=== PATIENT | male | born 1960 | race American Indian/Alaskan Native ===

== ENCOUNTER 2020-06-20 17:55 | Emergency (ER) | payer MEDICAID ==
--- NOTE | 2020-06-20 18:44 | Event Note ---
ED Screening Note Date of service: 06/20/20 Time: 18:43 ED Screening Note: Patient complains of nausea vomiting and abdominal pain x2 days Vitals are normal This initial assessment/diagnostic orders/clinical plan/treatment(s) is/are subject to change based on patients health status, clinical progression and re- assessment by fellow clinical providers in the ED. Further treatment and workup at subsequent clinical providers discretion. Patient/guardian urged not to elope from the ED as their condition may be serious if not clinically assessed and managed. Initial orders include: Labs
[2020-06-20 19:41] LABS: Basophils % (Auto) 0.3 % (0.0-1.8); Eosinophils % (Auto) 0.2 % (0.0-4.3); Hemoglobin 13.4 gm/dl (11.8-15.2); Lymphocytes # (Auto) 0.7 K/mm3 (1.2-5.4); Lymphocytes % (Auto) 11.5 % (13.4-35.0); Mean Corpuscular HGB Conc 34 % (32-34); Mean Corpuscular Volume 106 fl (84-94); Monocytes # (Auto) 0.5 K/mm3 (0.0-0.8); Monocytes % (Auto) 7.7 % (0.0-7.3); Platelet Count 125 K/mm3 (140-440); Red Blood Count 3.77 M/mm3 (3.65-5.03); Red Cell Distribution Width 12.4 % (13.2-15.2)
[2020-06-20 20:02] LABS: Albumin 4.2 g/dL (3.9-5); Calcium 9.9 mg/dL (8.4-10.2)
[2020-06-20] MEDS ORDERED: SODIUM CHLORIDE 0.9% 1000 ML 1,000 ML IV ONE ×2 (21:13→22:54)
[2020-06-20] MEDS ORDERED: ONDANSETRON 4 MG/2 ML INJ IV ONE ×2 (21:13→22:23)
[2020-06-20] MEDS ORDERED: HYDROmorphone 1 MG/1 ML INJ IV ONE (22:23)
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
--- NOTE | 2020-06-20 22:33 | XRay Report ---
CHEST 1 VIEW 2156 INDICATION / CLINICAL INFORMATION: WEAK COMPARISON: None available. FINDINGS: SUPPORT DEVICES: Right-sided PA catheter has its tip in the area of the atrial caval junction HEART / MEDIASTINUM: Stable LUNGS / PLEURA: Mild chronic appearing changes are seen in the lung aguila. No definite acute infiltr ate is noted. No pneumothorax. ADDITIONAL FINDINGS: No significant additional findings. Signer Name: Deni Hill MD Signed: 06/20/2020 10:29 PM Workstation Name: [id number]
--- NOTE | 2020-06-20 22:35 | Cat Scan Report ---
CT ABDOMEN PELVIS WITHOUT CONTRAST INDICATION / CLINICAL INFORMATION: N/V; HIV. TECHNIQUE: Axial CT images were obtained through the abdomen and pelvis without IV contrast. All CT scans at [facility] location are performed using CT dose reduction for ALARA by means of automated exposure control. COMPARISON: None available. FINDINGS: LOWER CHEST: Prominent airways are noted. Patchy parenchymal changes right base LIVER: Small focal amorphous calcification inferior tip right lobe liver, etiology unclear. GALLBLADDER: No significant abnormality. BILE DUCTS: No significant abnormality. PANCREAS: No significant abnormality. SPLEEN: No significant abnormality. ADRENALS: No significant abnormality. RIGHT KIDNEY and URETER: No significant abnormality. LEFT KIDNEY and URETER: Microcalcifications left kidney is present STOMACH and SMALL BOWEL: No significant abnormality. COLON: No significant abnormality. APPENDIX: No significant abnormality. PERITONEUM: No free fluid. No free air. No fluid collection. LYMPH NODES: No significant adenopathy. AORTA and ARTERIES: No significant abnormality. IVC and VEINS: IVC filter in place URINARY BLADDER: No significant abnormality. REPRODUCTIVE ORGANS: No significant abnormality ADDITIONAL FINDINGS: Multiple calcifications present within the pelvis. SKELETAL SYSTEM: No significant abnormality. IMPRESSION: 1. No significant abnormality. 2. Focal calcifications distal tip right lower liver etiology unclear 3. Left nephrolithiasis 4. Patchy parenchymal changes right base, pneumonia is a concern Signer Name: Marquez Torrez MD Signed: 06/20/2020 10:30 PM Workstation Name: [id number]
[2020-06-20] MEDS ORDERED: AZITHROMYCIN 500 MG in SODIUM CHLORIDE 0.9% 250ML 250 ML IV ONE (22:37)
[2020-06-20 23:28] LABS: Bacteria,Urine 1+ /HPF (Negative); Bilirubin,Urine NEG (Negative); Blood,Urine SM (Negative); Color,Urine Yellow (Yellow); Mucus,Urine FEW /HPF; Urobilinogen,Urine < 2.0 mg/dL (<2.0)
[2020-06-21 00:39] VITALS: BP 101/59
== END 2020-06-21 01:00 | disposition home or self-care (01) ==
LOC: ED 17:55
DX: J18.9 Pneumonia, unspecified organism (principal); E86.0 Dehydration; Z21 Asymptomatic human immunodeficiency virus [HIV] infection status; Z98.890 Other specified postprocedural states; Z79.899 Other long term (current) drug therapy
CPT/HCPCS: 36415; 71045; 74176; 80053; 81001; 83690; 85025; 87086; 96361; 96365; 96375; 96376; 99285; J0456; J1170; J2405; J7030; J7050

== ENCOUNTER 2020-07-04 10:02 | Emergency (ER) | payer MEDICAID ==
[2020-07-04 10:15] VITALS: BP 116/71
--- NOTE | 2020-07-04 10:15 | Event Note ---
ED Screening Note Date of service: 07/04/20 Time: 10:15 ED Screening Note: Patient complains of nausea and vomiting epigastric pain and hiccuping x2 days States shortness of breath only with hiccuping This initial assessment/diagnostic orders/clinical plan/treatment(s) is/are subject to change based on patients health status, clinical progression and re- assessment by fellow clinical providers in the ED. Further treatment and workup at subsequent clinical providers discretion. Patient/guardian urged not to elope from the ED as their condition may be serious if not clinically assessed and managed. Initial orders include: Labs
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
[2020-07-04 11:53] LABS: Basophils % (Auto) 0.3 % (0.0-1.8); Eosinophils % (Auto) 0.2 % (0.0-4.3); Hematocrit 37.2 % (35.5-45.6); Hemoglobin 12.5 gm/dl (11.8-15.2); Lymphocytes # (Auto) 1.4 K/mm3 (1.2-5.4); Lymphocytes % (Auto) 26.4 % (13.4-35.0); Mean Corpuscular HGB Conc 34 % (32-34); Mean Corpuscular Volume 107 fl (84-94); Monocytes # (Auto) 0.6 K/mm3 (0.0-0.8); Monocytes % (Auto) 10.5 % (0.0-7.3); Platelet Count 188 K/mm3 (140-440); Red Blood Count 3.47 M/mm3 (3.65-5.03); Red Cell Distribution Width 13.5 % (13.2-15.2)
[2020-07-04] MEDS ORDERED: SODIUM CHLORIDE 0.9% 1000 ML 1,000 ML IV ONE ×2 (11:58→11:59)
[2020-07-04] MEDS ORDERED: LORazepam 2 MG/ML VIAL IV ONE (11:58)
[2020-07-04 12:11] LABS: Alanine Aminotransferase 36 units/L (7-56); Albumin 4.2 g/dL (3.9-5); BUN/Creatinine Ratio 11; Blood Urea Nitrogen 20 mg/dL (9-20); Calcium 10.1 mg/dL (8.4-10.2); Hemolysis Index 18
[2020-07-04] MEDS: ONDANSETRON 4 MG/2 ML INJ IV ONE (12:17)
--- NOTE | 2020-07-04 14:24 | Cat Scan Report ---
CT ABDOMEN PELVIS WITHOUT CONTRAST INDICATION / CLINICAL INFORMATION: abdominal pain hiccups hx of lymphoma. TECHNIQUE: Axial CT images were obtained through the abdomen and pelvis without IV contrast. All CT scans at [facility] location are performed using CT dose reduction for ALARA by means of automated exposure control. COMPARISON: 06/20/2020 FINDINGS: LOWER CHEST: Hiatal hernia. Decreased patchy airspace process right lower lobe LIVER: Coarse dystrophic calcification in for aspect right lower liver GALLBLADDER: No significant abnormality. BILE DUCTS: No significant abnormality. PANCREAS: No significant abnormality. SPLEEN: No significant abnormality. ADRENALS: No significant abnormality. RIGHT KIDNEY and URETER: No significant abnormality. LEFT KIDNEY and URETER: Persistent unchanged punctate calcification left kidney STOMACH and SMALL BOWEL: No significant abnormality. COLON: No significant abnormality. APPENDIX: No significant abnormality. PERITONEUM: No free fluid. No free air. No fluid collection. LYMPH NODES: No significant adenopathy. AORTA and ARTERIES: No significant abnormality. IVC and VEINS: IVC filter in place URINARY BLADDER: No significant abnormality. REPRODUCTIVE ORGANS: No significant abnormality ADDITIONAL FINDINGS: None. SKELETAL SYSTEM: No significant abnormality. IMPRESSION: 1. No interval changes compared to previous exam 06/20/2020 2. Left nephrolithiasis 3. Dystrophic calcification right lower liver Signer Name: Marquez Torrez MD Signed: 07/04/2020 2:20 PM Workstation Name: [id number]
--- NOTE | 2020-07-04 15:07 | Cat Scan Report ---
CT CHEST WITHOUT CONTRAST INDICATION / CLINICAL INFORMATION: dyspnea hiccups. TECHNIQUE: Axial CT images were obtained through the chest without contrast. All CT scans at this location are p erformed using CT dose reduction for ALARA by means of automated exposure control. COMPARISON: Prior chest radiograph dated 06/20/2020. No prior CT of the chest. FINDINGS: HEART: No significant abnormality. THORACIC AORTA: Mild atherosclerotic calcification without acute abnormality. MEDIASTINUM and EFRAÍN: No significant abnormality. LUNGS: Central lobar and paraseptal emphysematous changes are noted with apical bulla. Left upper lob e pleural parenchymal scarring is noted. 7 mm noncalcified soft tissue density nodule noted in the r ight upper lobe (series 3 image 200) with associated scarring. Tiny 3 mm noncalcified soft tissue den sity nodule periphery of the right upper lobe (series 3 image 114). Additional right lung base atelec tasis/scarring is noted. PLEURA: No significant pleural effusion. No pneumothorax. ADDITIONAL FINDINGS: Right upper extremity PICC with its tip terminating at the superior caval juncti on. UPPER ABDOMEN: No acute findings. Heterogeneous lesion with dystrophic calcifications noted inferior margin of the hepatic parenchyma measuring 2.0 cm. Tiny incompletely characterized hypoattenuating le chase of the right hepatic lobe measures 5 mm (series 4 image 53). SKELETAL SYSTEM: Multilevel degenerative changes are noted of the spine. No aggressive osseous lesion s. IMPRESSION: 1. 7 mm noncalcified soft tissue density nodule in the right upper lobe (series 3 image 200) with ass ociated parenchymal scarring. Additional 3 mm soft tissue nodule periphery right upper lobe. These no dules need follow-up, recommendations as below. 2. Emphysematous lung changes with biapical bulla and pleural parenchymal scarring as described above . 3. No acute findings. INCIDENTAL PULMONARY NODULE RECOMMENDATIONS Nodule size* 4 mm * Low-Risk Patient: no follow-up needed * High-Risk Patient: follow-up at 12 months; if unchanged, no further follow-up Nodule size >4-6 mm * Low-Risk Patient: follow-up at CT at 12 months; if unchanged, no further follow-up * High-Risk Patient: initial follow-up CT at 6-12 months, then at 18-24 months if no change Nodule size >6-8 mm * Low-Risk Patient: initial follow-up CT at 6-12 months, then at 18-24 months if no change * High risk Patient: initial follow-up CT at 3-6 months, then at 9-12 and 24 months if no change Nodule size >8 mm * Same for Low- or High-Risk Patient: follow-up CT at around 3, 9, and 24 months, dynamic contrast e nhanced CT, PET, and/or biopsy Note Newly detected indeterminate nodule in persons 35 years of age or older. Persons under the age of 35 should not receive follow-up unless there is a known primary cancer. Low-Risk Patient - minimal or absent history of smoking and of other known risk factors. High-Risk Patient - history of smoking or of other known risk factors. * Average of length and width The risk of malignancy in this category (<1%) is substantially less than that in a baseline CT scan of an asymptomatic smoker. Nonsolid (ground-glass) or partly solid nodules may require longer follow-up to exclude indolent Ginette nocarcinoma. Signer Name: Juan Sheriff MD Signed: 07/04/2020 3:03 PM Workstation Name: [id number]
[2020-07-04] MEDS ORDERED: ONDANSETRON 4 MG/2 ML INJ IV ONE (16:25)
== END 2020-07-04 17:33 | disposition home or self-care (01) ==
LOC: ED 10:02
DX: E86.0 Dehydration (principal); R11.2 Nausea with vomiting, unspecified; Z98.890 Other specified postprocedural states; Z79.2 Long term (current) use of antibiotics; Z79.899 Other long term (current) drug therapy
CPT/HCPCS: 36415; 71250; 74176; 80053; 83690; 84484; 85025; 96361; 96374; 96375; 99284; J2060; J2405; J7030